=== PATIENT | female | born 1945 | race Caucasian/White ===

== ENCOUNTER 2017-02-23 11:24 | Inpatient (IN) ==
[2017-02-23] MEDS ORDERED: NS 1,000 ML IV ONE (11:37)
[2017-02-23] MEDS ORDERED: DIPHTHERIA/TETANUS ADULT IM ONE (11:37)
[2017-02-23 12:01] LABS: MANUAL DIFF NEEDED? NO; URINE CULTURE NEEDED? NO; URINE MICRO REVIEW NEEDED? NO; URINE SOURCE CATH
[2017-02-23 12:04] LABS: BASO% 0.2 % (0.0-0.8); EOS% 0.8 % (0.0-10.0); HEMOGLOBIN 10.7 g/dL (12.0-16.0); IMM GRAN# 0.08 X1000 (0.0-0.04); IMM GRAN% 0.6 % (0.0-0.5); LYMPH# 2.51 X1000 (1.2-3.4); LYMPH% 18.9 % (20.5-51.1); MCH 29.9 PG (27-31); MCHC 32.4 g/dL (33-37); MCV 92.2 FL (81-99); MONO# 0.82 X1000 (0.11-0.59); MONO% 6.2 % (1.7-9.3); MPV 10.2 FL (7.4-10.4); NEUT% 73.3 % (42.2-75.2); PLT 209 X1000 (130-400); RBC 3.58 XMIL (4.2-5.4)
[2017-02-23 12:07] LABS: BILIRUBIN URINE NEGATIVE (NEGATIVE); BLOOD URINE NEGATIVE (NEGATIVE); COLOR YELLOW; GLUCOSE URINE 300 mg/dL (NEGATIVE); LEUKOCYTES URINE NEGATIVE (NEGATIVE); NITRITE URINE NEGATIVE (NEGATIVE); PROTEIN URINE 100 mg/dL (NEGATIVE); SP GRAVITY URINE 1.019; TURBIDITY URINE CLEAR (CLEAR); UR EPITHELIAL CELLS <10 /HPF (<10); URINE BACTERIA NEGATIVE /HPF; URINE RBC <10 /HPF (<10); URINE WBC <10 /HPF (<10); UROBILINOGEN URINE NORMAL (NORMAL)
[2017-02-23 12:26] LABS: ALBUMIN 3.9 g/dL (3.5-5.0); CALCIUM 8.6 mg/dL (8.8-10.2); POTASSIUM 5.5 mmol/L (3.5-5.1); TOTAL BILIRUBIN 0.35 mg/dL (0.20-1.00); TOTAL PROTEIN 6.6 g/dL (6.3-8.3)
[2017-02-23] MEDS ORDERED: MORPHINE IV ONE ×2 (12:26→14:16)
[2017-02-23] MEDS ORDERED: ZOFRAN IV ONE ×2 (12:27→14:17)
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
[2017-02-23 14:09] LABS: INR 1.04
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
[2017-02-23] MEDS ORDERED: NS 1,000 ML IV SCH (15:33)
[2017-02-23] MEDS ORDERED: RESTORIL PO PRN (15:59)
[2017-02-23] MEDS ORDERED: MELATONIN PO PRN (15:59)
[2017-02-23] MEDS: NS 1,000 ML IV SCH (16:23)
[2017-02-23] MEDS: DILAUDID IV PRN ×2 (16:24→21:39)
[2017-02-23 16:34] LABS: UR AMPHETAMINES QUAL NONE DETECTED (NONE DETECT); UR BARBITUATES QUAL NONE DETECTED (NONE DETECT); UR BENZODIAZEPIN QUAL PRESUMPTIVE POSITIVE (NONE DETECT); UR CANNABINOIDS QUAL NONE DETECTED (NONE DETECT); UR COCAINE QUAL NONE DETECTED (NONE DETECT); UR METHADONE QUAL NONE DETECTED (NONE DETECT); UR OPIATES QUAL PRESUMPTIVE POSITIVE (NONE DETECT); UR OXYCODONE QUAL NONE DETECTED (NONE DETECT); UR PCP QUAL NONE DETECTED (NONE DETECT)
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
[2017-02-23 18:34] LABS: CALCIUM 8.6 mg/dL (8.8-10.2); POTASSIUM 5.6 mmol/L (3.5-5.1)
[2017-02-23 19:24] LABS: CK INDEX 2.5 (0.0-2.5); CK-MB 5.73 ng/mL (0.0-5.0)
[2017-02-23] MEDS: DUONEB (A & A) INH SCH (20:30)
[2017-02-23] MEDS: HUMALOG SUBQ SCH (21:37)
[2017-02-23] MEDS: PROZAC PO SCH (21:38)
[2017-02-23] MEDS: LIPITOR PO SCH (21:38)
[2017-02-23] MEDS: NEURONTIN PO SCH (21:38)
[2017-02-23] MEDS: KLONOPIN PO SCH (21:38)
[2017-02-23] MEDS: COREG PO SCH (22:36)
[2017-02-23] MEDS: HEPARIN SUBQ SCH (22:37)
[2017-02-24] MEDS: DILAUDID IV PRN ×4 (01:28→17:42)
[2017-02-24 02:16] LABS: CK INDEX 1.9 (0.0-2.5); CK-MB 4.29 ng/mL (0.0-5.0)
[2017-02-24] MEDS: DUONEB (A & A) INH SCH ×4 (03:25→20:30)
[2017-02-24] MEDS: NS 1,000 ML IV SCH ×3 (04:22→17:21)
[2017-02-24] MEDS: SYNTHROID PO SCH (06:14)
[2017-02-24] MEDS: HUMALOG SUBQ SCH ×4 (06:14→21:49)
[2017-02-24 06:24] LABS: HEMATOCRIT 28.3 % (37.0-47.0); MCH 30.7 PG (27-31); MCHC 31.8 g/dL (33-37); MCV 96.6 FL (81-99); MPV 10.2 FL (7.4-10.4); RBC 2.93 XMIL (4.2-5.4)
[2017-02-24 06:49] LABS: HEMOGLOBIN A1C 7.4 % (4.8-6.0)
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
[2017-02-24 07:10] LABS: AGAP 15; BUN 33 mg/dL (8-22); CALCIUM 8.4 mg/dL (8.8-10.2); CHLORIDE 99 mmol/L (98-107); COSMO 288; HDL 85 mg/dL (45-65); IRON SATURATION 14 %; LDL 57 mg/dL; SODIUM 136 mmol/L (136-145); TCO2 22 mmol/L (25-35); TIBC 219 ug/dL; TOTAL IRON 31 ug/dL (49-151); TRIGLYCERIDES 173 mg/dL (35-135); UNBOUND IRON 188 ug/dL (112-346); VLDL 35 mg/dL
[2017-02-24 07:47] LABS: POTASSIUM 6.2 mmol/L (3.5-5.1)
--- NOTE | 2017-02-24 07:49 | EKG Report ---
Test Performed on : 02/23/2017 11:20:02 AM Test Reason : No Order in [employer] Blood Pressure : / mmHG Vent. Rate : 082 BPM Atrial Rate : 082 BPM P-R Int : 166 ms QRS Dur : 078 ms QT Int : 384 ms P-R-T Axes : 037 -47 035 degrees QTc Int : 448 ms Normal sinus rhythm. Left axis deviation Abnormal ECG When compared with ECG of 02-JUL-2016 05:35, QRS duration has decreased Minimal criteria for Anterior infarct are no longer present Unconfirmed Result
[2017-02-24] MEDS ORDERED: HUMULIN R SUBQ ONE (08:24)
[2017-02-24] MEDS ORDERED: D50W SYRINGE IV ONE (08:24)
[2017-02-24] MEDS ORDERED: ALBUTEROL 0.5% INH CONC FOR HYPERKALEMIA INH ONE (08:25)
[2017-02-24] MEDS ORDERED: KAYEXALATE PO ONE (08:27)
[2017-02-24] MEDS ORDERED: CALCIUM GLUCONATE 1 GM in NS 50 ML IV ONE (09:00)
--- NOTE | 2017-02-24 09:17 | EKG Report ---
Test Performed on : 02/24/2017 08:19:24 AM Test Reason : Elevated postassium Blood Pressure : / mmHG Vent. Rate : 102 BPM Atrial Rate : 102 BPM P-R Int : 170 ms QRS Dur : 084 ms QT Int : 330 ms P-R-T Axes : 036 -35 009 degrees QTc Int : 430 ms Sinus tachycardia. Left axis deviation Inferior infarct , age undetermined Abnormal ECG When compared with ECG of 23-FEB-2017 11:20, Nonspecific ST and T wave abnormality V2 no longer present T wave amplitude has decreased in far lateral leads Confirmed by Seymour Hi DO ([id number]) on 02/27/2017 7:09:34 AM
[2017-02-24 09:41] LABS: CK INDEX 1.7 (0.0-2.5); CK-MB 3.51 ng/mL (0.0-5.0)
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
[2017-02-24] MEDS: KLONOPIN PO SCH ×2 (10:00→21:49)
[2017-02-24] MEDS: NEURONTIN PO SCH ×3 (10:00→17:42)
[2017-02-24] MEDS: HEPARIN SUBQ SCH ×2 (10:01→21:50)
[2017-02-24] MEDS: PROZAC PO SCH ×2 (10:01→21:49)
[2017-02-24] MEDS: COREG PO SCH ×2 (10:01→21:50)
[2017-02-24] MEDS: OXY IR PO PRN (10:01)
[2017-02-24] MEDS: HEMOCYTE PLUS CAPSULE PO SCH (10:02)
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
--- NOTE | 2017-02-24 15:42 | Diag Imaging Result Doc PS360 ---
MRI BRAIN W W/O CONTRAST - 02/24/2017 INDICATION: seizures COMPARISON: Head CT 02/23/2017 FINDINGS: There is no area of restricted diffusion. No intracranial mass or hemorrhage. There is extensive white matter hyperintensity involving the cerebral hemispheres, midbrain and vicente. This is most compatible with extensive chronic microvascular disease. No abnormal contrast enhancement. There is chronic sinusitis of the right sphenoid sinus. IMPRESSION: 1. Advanced chronic microvascular disease but no acute intracranial disease. 2. Chronic right sphenoid sinusitis. Electronically signed by Bobby Frost 02/24/2017 3:40 PM
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
[2017-02-24] MEDS: LIPITOR PO SCH (21:50)
[2017-02-25] MEDS: DUONEB (A & A) INH SCH ×4 (02:45→20:00)
[2017-02-25] MEDS: NS 1,000 ML IV SCH ×5 (03:01→18:26)
[2017-02-25] MEDS: DILAUDID IV PRN ×3 (03:35→11:32)
[2017-02-25] MEDS: HUMALOG SUBQ SCH ×4 (06:03→21:58)
[2017-02-25] MEDS: SYNTHROID PO SCH (06:03)
[2017-02-25 06:29] LABS: HEMATOCRIT 23.1 % (37.0-47.0); HEMOGLOBIN 7.2 g/dL (12.0-16.0); MCH 30.3 PG (27-31); MCHC 31.2 g/dL (33-37); MCV 97.1 FL (81-99); MPV 10.4 FL (7.4-10.4); RBC 2.38 XMIL (4.2-5.4)
[2017-02-25 06:37] LABS: CALCIUM 8.7 mg/dL (8.8-10.2); POTASSIUM 5.1 mmol/L (3.5-5.1)
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
[2017-02-25] MEDS: COREG PO SCH ×2 (08:58→21:59)
[2017-02-25] MEDS: HEMOCYTE PLUS CAPSULE PO SCH (08:58)
[2017-02-25] MEDS: PROZAC PO SCH ×2 (08:58→21:59)
[2017-02-25] MEDS: HEPARIN SUBQ SCH ×2 (08:58→21:57)
[2017-02-25] MEDS: NEURONTIN PO SCH ×5 (08:58→16:14)
[2017-02-25] MEDS: KLONOPIN PO SCH (08:59)
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
[2017-02-25 14:22] LABS: HEMATOCRIT 23.7 % (37.0-47.0); HEMOGLOBIN 7.4 g/dL (12.0-16.0)
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
[2017-02-25] MEDS: OXY IR PO PRN ×3 (15:35→21:59)
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
[2017-02-25] MEDS: LIPITOR PO SCH (21:59)
[2017-02-26] MEDS: DUONEB (A & A) INH SCH ×5 (03:15→20:22)
[2017-02-26] MEDS: OXY IR PO PRN ×6 (03:35→21:06)
[2017-02-26] MEDS: NS 1,000 ML IV SCH (04:23)
[2017-02-26] MEDS: SYNTHROID PO SCH (06:37)
[2017-02-26] MEDS: HUMALOG SUBQ SCH ×5 (06:37→21:07)
[2017-02-26 06:56] LABS: POTASSIUM 4.7 mmol/L (3.5-5.1)
[2017-02-26 06:59] LABS: HEMATOCRIT 22.2 % (37.0-47.0); MCH 30.4 PG (27-31); MCHC 31.5 g/dL (33-37); MCV 96.5 FL (81-99); MPV 10.6 FL (7.4-10.4); RBC 2.3 XMIL (4.2-5.4)
--- NOTE | 2017-02-26 07:45 | Diag Imaging Result Doc PS360 ---
EXAM: CHEST-PORTABLE INDICATION: dyspnea TECHNIQUE: One view COMPARISON: 07/01/2016 FINDINGS: Inspiration is suboptimal. There is atelectasis at the mid and lower lung zone on the right. There is a vague opacity at the left lung base suggesting mild atelectasis versus infiltrate. Cardiac silhouette is grossly unremarkable for AP technique. IMPRESSION: Atelectasis at the right lung base and a vague opacity at the left lung base suggesting mild atelectasis versus infiltrate. Follow-up PA and lateral radiograph is recommended. Electronically signed by Chicho Friend 02/26/2017 7:43 AM
[2017-02-26] MEDS: HEMOCYTE PLUS CAPSULE PO SCH (08:49)
[2017-02-26] MEDS: NEURONTIN PO SCH ×4 (08:50→21:06)
[2017-02-26] MEDS: PROZAC PO SCH ×2 (08:50→21:06)
[2017-02-26] MEDS: COREG PO SCH ×2 (08:51→21:06)
[2017-02-26] MEDS: KLONOPIN PO SCH (08:53)
[2017-02-26] MEDS: HEPARIN SUBQ SCH ×2 (10:09→21:07)
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
[2017-02-26] MEDS: MIRALAX PO SCH (11:23)
[2017-02-26] MEDS: NS 500 ML IV SCH (12:20)
[2017-02-26] MEDS: LASIX IV SCH ×2 (15:26→18:39)
[2017-02-26] MEDS ORDERED: LASIX ONE (18:37)
[2017-02-26] MEDS: LIPITOR PO SCH (21:07)
[2017-02-27] MEDS: OXY IR PO PRN ×7 (00:47→22:28)
[2017-02-27] MEDS: DUONEB (A & A) INH SCH ×4 (03:20→19:22)
[2017-02-27] MEDS: NS 500 ML IV SCH (04:52)
[2017-02-27] MEDS: SYNTHROID PO SCH (06:08)
[2017-02-27] MEDS: HUMALOG SUBQ SCH ×4 (06:09→21:08)
[2017-02-27 06:14] LABS: MANUAL DIFF NEEDED? NO
[2017-02-27 06:22] LABS: BASO% 0.3 % (0.0-0.8); EOS# 0.24 X1000 (0.0-0.7); EOS% 2.3 % (0.0-10.0); HEMATOCRIT 30.1 % (37.0-47.0); HEMOGLOBIN 9.9 g/dL (12.0-16.0); IMM GRAN# 0.03 X1000 (0.0-0.04); IMM GRAN% 0.3 % (0.0-0.5); LYMPH# 1.24 X1000 (1.2-3.4); LYMPH% 11.9 % (20.5-51.1); MCH 28.4 PG (27-31); MCHC 32.9 g/dL (33-37); MCV 86.5 FL (81-99); MONO% 12.5 % (1.7-9.3); MPV 10.1 FL (7.4-10.4); NEUT% 72.7 % (42.2-75.2); PLT 132 X1000 (130-400); RBC 3.48 XMIL (4.2-5.4)
[2017-02-27 06:43] LABS: ALBUMIN 3.1 g/dL (3.5-5.0); TOTAL BILIRUBIN 1.02 mg/dL (0.20-1.00); TOTAL PROTEIN 6.3 g/dL (6.3-8.3)
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
[2017-02-27] MEDS: COLACE PO SCH (08:32)
[2017-02-27] MEDS: PROZAC PO SCH ×2 (08:32→21:08)
[2017-02-27] MEDS: COREG PO SCH ×2 (08:32→21:09)
[2017-02-27] MEDS: HEMOCYTE PLUS CAPSULE PO SCH (08:32)
[2017-02-27] MEDS: KLONOPIN PO SCH (08:33)
[2017-02-27] MEDS: HEPARIN SUBQ SCH (08:33)
[2017-02-27] MEDS: NEURONTIN PO SCH ×4 (08:33→18:56)
[2017-02-27] MEDS: MIRALAX PO SCH ×2 (08:34→21:10)
[2017-02-27] MEDS ORDERED: MAGNESIUM SULFATE 2 GM/S.W.I. 2 GM/50 ML IVPB IV ONE (16:50)
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
[2017-02-27] MEDS: LOVENOX SUBQ SCH (18:58)
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
[2017-02-27] MEDS: LIPITOR PO SCH (21:09)
[2017-02-28] MEDS ORDERED: TYLENOL PO PRN (02:21)
[2017-02-28] MEDS: DUONEB (A & A) INH SCH ×4 (03:33→20:06)
[2017-02-28] MEDS: DULCOLAX PR SCH ×2 (03:50→22:36)
[2017-02-28] MEDS ORDERED: AYR NASAL SPRAY NAS PRN (03:51)
[2017-02-28] MEDS: OXY IR PO PRN ×5 (04:52→22:35)
[2017-02-28 05:47] LABS: HEMATOCRIT 29.5 % (37.0-47.0); HEMOGLOBIN 9.7 g/dL (12.0-16.0); MCH 29.3 PG (27-31); MCHC 32.9 g/dL (33-37); MCV 89.1 FL (81-99); MPV 9.7 FL (7.4-10.4); RBC 3.31 XMIL (4.2-5.4)
[2017-02-28 06:09] LABS: POTASSIUM 3.9 mmol/L (3.5-5.1)
[2017-02-28] MEDS: SYNTHROID PO SCH (06:14)
[2017-02-28] MEDS: HUMALOG SUBQ SCH ×5 (06:14→22:37)
--- NOTE | 2017-02-28 06:25 | Diag Imaging Result Doc PS360 ---
EXAM: CHEST-PORTABLE HISTORY: pleural effusions TECHNIQUE: Portable AP COMPARISON: 02/26/2017 FINDINGS: Heart is mildly prominent. Mild vascular distention. There is a small left pleural effusion. The right hemidiaphragm is elevated. No consolidation. The overall appearance is similar to that of the prior exam. IMPRESSION: Stable chest. Electronically signed by Chace Will 02/28/2017 6:22 AM
[2017-02-28] MEDS ORDERED: LANTUS SUBQ SCH (09:00)
[2017-02-28] MEDS ORDERED: VITAMIN D PO SCH (09:00)
[2017-02-28] MEDS: MIRALAX PO SCH ×2 (09:22→22:34)
[2017-02-28] MEDS: PROZAC PO SCH ×2 (09:24→22:38)
[2017-02-28] MEDS: COREG PO SCH ×2 (09:24→22:36)
[2017-02-28] MEDS: COLACE PO SCH (09:24)
[2017-02-28] MEDS: HEMOCYTE PLUS CAPSULE PO SCH (09:24)
[2017-02-28] MEDS: KLONOPIN PO SCH (09:26)
[2017-02-28] MEDS: NEURONTIN PO SCH ×3 (09:26→22:36)
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
[2017-02-28] MEDS: LOVENOX SUBQ SCH (18:30)
[2017-02-28] MEDS ORDERED: INSULIN PEN NEEDLES ONE (22:19)
[2017-02-28] MEDS: LIPITOR PO SCH (22:36)
[2017-03-01 06:00] LABS: HEMATOCRIT 31.9 % (37.0-47.0); HEMOGLOBIN 10.4 g/dL (12.0-16.0); MCH 29.4 PG (27-31); MCHC 32.6 g/dL (33-37); MCV 90.1 FL (81-99); MPV 10.2 FL (7.4-10.4); RBC 3.54 XMIL (4.2-5.4)
[2017-03-01 06:20] LABS: CALCIUM 9.2 mg/dL (8.8-10.2); POTASSIUM 4.5 mmol/L (3.5-5.1)
[2017-03-01] MEDS: SYNTHROID PO SCH (06:46)
[2017-03-01] MEDS: HUMALOG SUBQ SCH ×4 (06:46→23:20)
[2017-03-01] MEDS: OXY IR PO PRN ×4 (06:53→23:14)
[2017-03-01] MEDS: DUONEB (A & A) INH SCH ×4 (09:00→20:11)
[2017-03-01] MEDS: HEMOCYTE PLUS CAPSULE PO SCH (09:40)
[2017-03-01] MEDS: COLACE PO SCH (09:40)
[2017-03-01] MEDS: COREG PO SCH ×2 (09:40→23:15)
[2017-03-01] MEDS: KLONOPIN PO SCH (09:40)
[2017-03-01] MEDS: NEURONTIN PO SCH ×3 (09:40→17:08)
[2017-03-01] MEDS: MIRALAX PO SCH ×2 (09:41→23:15)
[2017-03-01] MEDS: LANTUS SUBQ SCH (09:41)
[2017-03-01] MEDS: PROZAC PO SCH ×2 (09:42→23:15)
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
[2017-03-01] MEDS: LOVENOX SUBQ SCH (17:08)
[2017-03-01] MEDS: LIPITOR PO SCH (23:14)
[2017-03-01] MEDS: DULCOLAX PR SCH (23:15)
[2017-03-02] MEDS: OXY IR PO PRN ×6 (01:44→21:23)
[2017-03-02] MEDS: DUONEB (A & A) INH SCH ×4 (03:49→20:00)
[2017-03-02] MEDS: SYNTHROID PO SCH ×2 (05:17→07:04)
[2017-03-02 06:03] LABS: CALCIUM 9.7 mg/dL (8.8-10.2); POTASSIUM 4.9 mmol/L (3.5-5.1)
[2017-03-02] MEDS: HUMALOG SUBQ SCH ×3 (07:04→17:36)
[2017-03-02] MEDS: NEURONTIN PO SCH ×3 (08:22→17:41)
[2017-03-02] MEDS: HEMOCYTE PLUS CAPSULE PO SCH (08:22)
[2017-03-02] MEDS: PROZAC PO SCH ×2 (08:22→21:30)
[2017-03-02] MEDS: MIRALAX PO SCH ×2 (08:23→21:22)
[2017-03-02] MEDS: COREG PO SCH ×2 (08:23→21:24)
[2017-03-02] MEDS: KLONOPIN PO SCH (08:23)
[2017-03-02] MEDS: LANTUS SUBQ SCH (08:24)
[2017-03-02] MEDS: COLACE PO SCH (08:24)
[2017-03-02] MEDS ORDERED: FLEET MINERAL OIL ENEMA PR ONE (11:43)
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
[2017-03-02] MEDS: LOVENOX SUBQ SCH (17:41)
[2017-03-02] MEDS: LIPITOR PO SCH (21:23)
[2017-03-02] MEDS: DULCOLAX PR SCH (21:24)
[2017-03-03] MEDS: OXY IR PO PRN ×5 (00:27→14:58)
[2017-03-03] MEDS: HUMALOG SUBQ SCH ×3 (00:28→12:06)
[2017-03-03] MEDS: DUONEB (A & A) INH SCH ×3 (03:59→15:49)
[2017-03-03] MEDS: SYNTHROID PO SCH (05:47)
[2017-03-03 06:03] LABS: CALCIUM 9.3 mg/dL (8.8-10.2)
[2017-03-03] MEDS: MIRALAX PO SCH (08:43)
[2017-03-03] MEDS: LANTUS SUBQ SCH (08:43)
[2017-03-03] MEDS: HEMOCYTE PLUS CAPSULE PO SCH (08:45)
[2017-03-03] MEDS: PROZAC PO SCH (08:45)
[2017-03-03] MEDS: NEURONTIN PO SCH (08:45)
[2017-03-03] MEDS: COLACE PO SCH (08:45)
[2017-03-03] MEDS: COREG PO SCH (08:45)
[2017-03-03] MEDS: KLONOPIN PO SCH (11:21)
[2017-03-03 11:54] VITALS: BP 127/96
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
--- NOTE | 2017-03-12 04:21 | CONSULTATION ---
DATE OF CONSULTATION: 02/23/2017 ADDENDUM: REVIEW OF SYSTEMS: Ten systems were reviewed with the patient and are negative, except as noted in the History of Present Illness. cc: Andre Tejada MD
== END 2017-03-03 16:35 ==
LOC: ED 11:24 → SUATTDRO 15:19 → 4N 15:19
PROVIDERS: ATTEND Internal Medicine